=== PATIENT | female | born 1990 | race Caucasian/White ===

== ENCOUNTER 2018-02-04 12:57 | Outpatient (CLI) | payer OTHER, SELFPAY ==
--- NOTE | 2018-02-04 14:02 | DI.RAD_ITS ---
SYMPTOM/DIAGNOSIS: CHEST PRESSURE, R07.89, H/O HODGKINS DISEASE PA AND LATERAL CHEST: There is a right subclavian indwelling catheter. The tip of this lies in the SVC just above the right atrium. Heart is not enlarged. Lungs are clear and well expanded. No pleural effusion is seen. CONCLUSION: No evidence of acute disease.
== END 2018-02-04 13:17 ==
PROVIDERS: PCP Nurse Practitioner Family; Visit Provider Internal Medicine
DX: R07.89 Other chest pain (principal); Z85.71 Personal history of Hodgkin lymphoma
CPT/HCPCS: 71046

== ENCOUNTER 2019-05-09 15:14 | Emergency (ER) | payer SELFPAY ==
[2019-05-09 15:18] VITALS: BP 113/68; PULSE 61; RESP 16; TEMP 36.5; O2SAT 100
--- NOTE | 2019-05-09 16:01 | ED.GENADUL_ITS ---
Discharge Plan Disposition Patient Disposition: HOME Discharge Details Chief Complaint: RashLesion Clinical Impression: Rash Primary Care Provider: Rosa,[facility] ED Provider: Sylvester Xavier Home Meds and New Rx's Prescriptions: New doxycycline hyclate 100 mg tablet 100 mg PO BID Qty: 14 RF: 0 Continued multivitamin [Daily Multiple] 1 EACH tablet 1 ea PO DAILY RF: 0 Discharge Instructions Instructions: Cellulitis (ED) Additional Instructions: Please remove bellybutton ring. Take antibiotic as prescribed. Be sure to take the full course. Is recommended to take this antibiotic with food. Please contact your primary care physician to arrange follow-up. Return to the ER for any worsening or new concerning symptoms. Discharge Data Discharge Date/Time-TO BE ENTERED AT DEPARTURE: 05/09/19 16:15 Medical Decision Making 29-year-old female with history of non-Hodgkin's lymphoma, now in remission, here with irritation of her umbilicus. Very subtle erythema noted with out drainage. No fluctuance or induration noted. Afebrile. Consider infectious etiology and early bacterial soft tissue infection. I will cover with doxycycline. More likely contact dermatitis. I recommended she remove her bellybutton ring indefinitely. Usual and customary discharge instructions were provided. HPI General Mode of arrival: ambulatory . Date/Time Provider Initiated Documentation: 05/09/19 15:20 . Limitations to Documentation: no limitations . Information obtained by: patient . HPI Narrative: 29-year-old female presents with chief complaint of itchy bellybutton. Patient notes that over the past 2 to 3 days bellybutton has been itchy. Symptoms are mild to moderate. No modifiers. No associated erythema. No drainage from the umbilicus. Related Data Home Medications Medication Instructions Recorded Confirmed multivitamin [Daily Multiple] 1 ea PO DAILY 09/07/16 05/09/19 doxycycline hyclate 100 mg PO BID #14 tab 05/09/19 Previous Rx's Medication Instructions Recorded doxycycline hyclate 100 mg PO BID #14 tab 05/09/19 Allergies Allergy/AdvReac Type Severity Reaction Status Date / Time cephalexin monohydrate AdvReac Intermediate Vomitting Verified 05/09/19 15:20 [From Keflex] General Stated Complaint: RashLesion MINESH: 3 Review of Systems Constitutional Constitutional: Denies fever(s) Gastrointestinal Gastrointestinal: Denies abdominal pain Integumentary/Breasts Skin/Breast: Reports as per [facility] Medical History Chlamydia infection (Resolved) Contraception (Acute) headaches (Resolved) Hodgkin lymphoma (Chronic) Family History Mother No problems noted. Grandmother Diabetes Personal history of malignant neoplasm Grandmother Diabetes Social History Smoking/Tobacco Use Status: Never Alcohol Intake: current Alcohol Intake frequency: a few times a month Drug use: Never Substance use type: does not use Seatbelt use: always Do you feel safe at home: Yes Do you feel safe in your relationship?: Yes Female Reproductive History Menstrual control method: pills History History 1 Para Hx # Term Pregnancies Multiple births Hx # Pregnancies Ectopic pregnancies AB induced Hx Number of Living Children AB spontaneous Exam Const General: cooperative and no acute distress Resp Auscultation: clear to auscultation bilaterally, no rales, no rhonchi and no wheezes Cardio Jugular venous pressure: no JVD Rate: regular rate and not tachycardic Rhythm: regular rhythm GI Palpation: soft, not firm, no guarding, no masses, not rigid and nontender Skin Lesions: no lesions Other: Umbilicus with no discharge, very subtle erythema which I suspect is secondary to scratching, no fluctuance or induration Course Vital Signs Vital signs: Vital Signs Temperature 36.5 C 05/09/19 15:18 Pulse 61 05/09/19 15:18 Respiratory Rate 16 05/09/19 15:18 Blood Pressure 113/68 05/09/19 15:18 Pulse Oximetry 100 05/09/19 15:18 Temperature 36.5 C 05/09/19 15:18 Temperature Source Temporal Artery Scan 05/09/19 15:18 Pulse 61 05/09/19 15:18 Respiratory Rate 16 05/09/19 15:18 Respiratory Effort Non-Labored 05/09/19 15:22 Blood Pressure 113/68 05/09/19 15:18 Blood Pressure Position Sitting 05/09/19 15:18 Pulse Oximetry 100 05/09/19 15:18 Oxygen Delivery Method Room Air 05/09/19 15:18 Oxygen Flow Rate 0 05/09/19 15:18 Pain Level 8 05/09/19 15:18
[2019-05-09] MEDS: Doxycycline Hyclate 100 MG CAP PO (16:12)
== END 2019-05-09 16:15 | disposition home or self-care (01) ==
PROVIDERS: Emergency Provider Student in an Organized Health Care Education/Training Program
DX: R21 Rash and other nonspecific skin eruption (principal)
CPT/HCPCS: 99283

== ENCOUNTER 2019-08-07 14:22 | Outpatient (REF) | payer BC, SELFPAY ==
--- NOTE | 2019-08-07 13:20 | PAPFT_PTH ---
PATIENT: Oliva Be LOC: [facility] U#:[id number] AGE/SX: 29/F ROOM: RE08/07/[address]: CLAIRE Storey : 1990 BED: DIS: 08/07/2019 SPEC #: [id number] RECD: 08/07/19 15:51 STATUS: ADITHYA REAlma #: [id number] IVELISSE: 08/07/19 13:[address]: Gayle Barrera DEPT: [facility] Cytology RECD BY: Annalise Valentin ENTERED: 08/07/19 15:51 SP TYPE: PAPFT [place] DR: Rosa Galvin Tissues: 1 - CX/ENDOCX FOR PAP SMEARS Procedures: PAP THIN PREP/[facility] Screening Comments: [id number]
== END 2019-08-07 14:42 ==
LOC: LBN 14:22
PROVIDERS: Visit Provider Nurse Practitioner Family
DX: Z12.4 Encounter for screening for malignant neoplasm of cervix (principal)
CPT/HCPCS: 88142

== ENCOUNTER 2020-12-03 02:50 | Outpatient (CLI) | payer OTHER, SELFPAY ==
[2020-12-03 16:21] LABS: Abs Immature Grans 0.02 10^3/uL (0.0-0.06); Absolute Basophil Count 0.03 10^3/uL (0.0-0.2); Absolute Eosinophil Count 0.19 10^3/uL (0.0-0.7); Absolute Lymphocyte Count 1.61 10^3/uL (1.2-3.4); Absolute Monocyte Count 0.46 10^3/uL (0.1-0.8); Absolute Neutrophil Count 4.48 10^3/uL (1.2-6.7); Basophils % 0.4; Eosinophils % 2.8; HCT 39.9 % (36.0-46.0); HGB 13.3 g/dL (11.2-15.7); Immature Grans % 0.3; Lymphocytes % 23.7; MCH 29.6 pg (27.0-33.0); MCHC 33.3 % (32.0-36.0); MCV 88.7 fL (80-95); MPV 9.4 fL (8.0-11.0); Monocytes % 6.8; Nucleated RBC 0 %; Platelet Count 286 10^3/uL (130-400); RDW-SD 39.4 fL; WBC 6.79 10^3/uL (4.4-10.8)
[2020-12-03 17:27] LABS: Iron 55 ug/dL (50-170); Total Iron Binding Capacity 281 ug/dL (250-450); Transferrin Sat 20 % (15-50)
[2020-12-03 17:41] LABS: ALT 23 U/L (14-59); AST 12 U/L (15-37); Albumin 4.5 g/dL (3.4-5.0); Alkaline Phosphatase 66 U/L (46-116); Anion Gap 11.3 mmol/L (3-11); BUN 21 mg/dL (7-18); Bilirubin, Total 0.3 mg/dL (0.2-1.0); CO2 25.7 mmol/L (21.0-32.0); CREATININE 1.1 mg/dL (0.55-1.02); Chloride 106 mmol/L (98-107); Estimated GFR 58.32 (mL/min/1.73m2); Ferritin 55 ng/mL (8-252); Folate 19.2 ng/mL (8.6-20.0); Glucose 89 mg/dL (74-106); Potassium 4.1 mmol/L (3.5-5.1); Sodium 143 mmol/L (136-145); Vitamin B12 860 pg/mL (193-986)
[2020-12-03 18:04] LABS: FREE T4 0.78 ng/dL (0.76-1.46)
[2020-12-05 16:21] LABS: CRP, High Sensitivity 2.88 mg/L (See Note)
[2020-12-05 16:37] LABS: T3,Free 2.9 pg/mL (2.8-5.3)
[2020-12-06 02:42] LABS: Vitamin D 25 Total 35.4 ng/mL (30-100)
[2020-12-06 09:18] LABS: Thyroperoxidase Antibody <28 U/mL (<=60)
[2020-12-07 21:21] LABS: Zinc, Serum 0.75 mcg/mL (0.66-1.10)
[2020-12-08 20:45] LABS: Free Retinol (Vitamin A) 46.5 mcg/dL (32.5-78.0)
== END 2020-12-03 02:51 | disposition home or self-care (01) ==
LOC: LBO 02:50
PROVIDERS: Visit Provider Naturopath
DX: E55.9 Vitamin D deficiency, unspecified (principal); L60.2 Onychogryphosis; C81.92 Hodgkin lymphoma, unspecified, intrathoracic lymph nodes; R53.83 Other fatigue
CPT/HCPCS: 36415; 80053; 82306; 86141; 82607; 82728; 82746; 83540; 83550; 84439; 84443; 84481; 84590; 84630; 85025; 86376

== ENCOUNTER 2020-12-07 11:27 | Outpatient (REF) | payer OTHER, SELFPAY ==
--- NOTE | 2020-12-07 11:15 | PAPFT_PTH ---
PATIENT: Oliva Be LOC: [facility] U#:[id number] AGE/SX: 30/F ROOM: RE12/07/[address]: CLAIRE Storey : 1990 BED: DIS: 12/07/2020 SPEC #: [id number] RECD: 12/07/20 12:55 STATUS: ADITHYA REAlma #: [id number] IVELISSE: 12/07/20 11:[address]: Gayle Barrera DEPT: [facility] Cytology RECD BY: Annalise Valentin ENTERED: 12/07/20 12:55 SP TYPE: PAPFT [place] DR: Unknown,Unknown Tissues: 1 - CX/ENDOCX FOR PAP SMEARS Procedures: PAP THIN PREP/[facility] Screening HPV DNA PROBE Comments: [id number]
--- OUTSIDE RECORDS SUMMARY | 2020-12-07 11:33 | XMS_ITS ---
:1990 External Reference #:[id number] Author Care Team Providers Name Role Phone Carole Primary Care Provider Unavailable Allergies Code Code System Name Reaction Severity Status Onset [id number] RxNorm Keflex Diarrhea Moderate to Active ? Severe ? ? ? Vomiting Moderate to Active ? Severe Medications Name Status Start Date Stop Date ? ? gabapentin Active 04/24/2018 Not available Sprintec (28) 0.25 mg-35 mcg tablet Active 06/23/2015 Not available 1 tablet every day by oral route. sulfamethoxazole 800 mg-trimethoprim 160 mg tablet Active ? Not available TAKE 1 TABLET BY MOUTH TWICE DAILY Problems Name Status Onset Date Source ? 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 Nodes Procedures Date Name Performed by ? ? Colonoscopy Information not avai lable Results Lab Results None recorded. Past Encounters 11/30/2020 Vitamin D Deficiency; On Examination - N ails Brittle; Hodgkin's Disease of Intrathoracic Lymph Nodes; Fatigue Esmer Lam, [place]: [address] [place] [address], Ph. [phone] Social History Tobacco Smoking Status Never Smoker Vaccine List Vaccine Type DT (pediatric) 02/16/1991 Hep A, pediatric, unspecified formulatio n 02/16/1991 Hep B, adolescent/high risk infant 1990 HPV, unspecified formulation 10/17/2004 Plan of Care Patient Instructions 1. buffered C caps- 2. Zinc a.g. 1 tab/day [facility] Rem[facility] Provider Appointments None recorded. ? ? Lab None recorded. ? ? Referral None recorded. ? ? Procedures None recorded. ? ? Surgeries None recorded. ? ? Imaging None recorded. ? ? Vitals 11/30/2020 09:15AM ESTABLISHED PATIENT 45 Height Weight BMI Blood Pressure 5 ft 9 in 143 lbs 21.1 kg/m2 102/60 mm[Hg] 07/23/2018 12:15PM NEW PATIENT 89 Height Weight BMI 5 ft 10.5 in 153 lbs 16 oz 21.8 kg/m2
== END 2020-12-07 11:28 | disposition home or self-care (01) ==
LOC: LBN 11:27
PROVIDERS: Visit Provider Nurse Practitioner Family
DX: Z12.4 Encounter for screening for malignant neoplasm of cervix (principal); Z11.51 Encounter for screening for human papillomavirus (HPV)
CPT/HCPCS: 88142; 87624

== ENCOUNTER 2021-08-23 18:02 | Outpatient (REF) | payer OTHER, SELFPAY ==
[2021-08-24 15:04] LABS: Chlamydia Result Negative (Negative); GC Result Negative (Negative)
== END 2021-08-23 18:03 | disposition home or self-care (01) ==
LOC: LBN 18:02
PROVIDERS: PCP Nurse Practitioner Family; Visit Provider Nurse Practitioner Family
DX: R30.0 Dysuria (principal); Z11.3 Encounter for screening for infections with a predominantly sexual mode of transmission
CPT/HCPCS: 87491; 87591; 87086

== ENCOUNTER 2022-01-27 01:30 | Outpatient (CLI) | payer OTHER, SELFPAY ==
[2022-01-27 15:24] LABS: HCG Quant, Pregnancy 149 mIU/mL (1-3)
== END 2022-01-27 01:31 | disposition home or self-care (01) ==
LOC: LBO 01:30
PROVIDERS: Obstetrics & Gynecology Gynecology; PCP Nurse Practitioner Family; Visit Provider Nurse Practitioner Family
DX: O03.9 Complete or unspecified spontaneous abortion without complication (principal)
CPT/HCPCS: 36415; 84702

== ENCOUNTER 2022-05-24 10:20 | Outpatient (REF) | payer OTHER, SELFPAY ==
[2022-05-25 12:47] LABS: Chlamydia Result Negative (Negative); GC Result Negative (Negative)
== END 2022-05-24 10:21 | disposition home or self-care (01) ==
LOC: LBN 10:20
PROVIDERS: PCP Nurse Practitioner Family; Visit Provider Nurse Practitioner Women's Health
DX: Z11.3 Encounter for screening for infections with a predominantly sexual mode of transmission (principal)
CPT/HCPCS: 87491; 87591

== ENCOUNTER 2022-05-26 02:48 | Outpatient (CLI) | payer OTHER, SELFPAY ==
[2022-05-29 09:41] LABS: HIV-1/2 Ag & Ab Screen Negative (Negative)
[2022-05-29 09:56] LABS: Hepatitis C Ab w Rflx HCV PCR Negative (Negative)
[2022-05-30 19:17] LABS: Syphilis IgG w/Reflex Nonreactive (Nonreactive)
== END 2022-05-26 02:49 | disposition home or self-care (01) ==
LOC: LBO 02:49
PROVIDERS: PCP Nurse Practitioner Family; Visit Provider Nurse Practitioner Women's Health
DX: Z11.3 Encounter for screening for infections with a predominantly sexual mode of transmission (principal)
CPT/HCPCS: 36415; 86803; 87389; 86780

== ENCOUNTER 2022-07-24 15:43 | Outpatient (REF) | payer OTHER, SELFPAY ==
[2022-07-26 13:48] LABS: Chlamydia Result Negative (Negative); GC Result Negative (Negative)
== END 2022-07-24 15:44 | disposition home or self-care (01) ==
LOC: LBN 15:43
PROVIDERS: Visit Provider Nurse Practitioner Women's Health
DX: Z11.3 Encounter for screening for infections with a predominantly sexual mode of transmission (principal)
CPT/HCPCS: 87491; 87591

== ENCOUNTER → 2022-11-16 00:17 | Outpatient (CLI) | payer OTHER, SELFPAY ==
--- NOTE | 2022-11-16 | DI.MRI_ITS ---
Exam(s) MR LUMBAR SPINE WO EXAM: MR LUMBAR SPINE WO CLINICAL HISTORY: LUMBAR BACK PAIN M54.50. TECHNIQUE: Multiplanar multisequence MRI of the Lumbar spine was performed. COMPARISON: CT ABD/PELVIS WO W CONTRAST from 06/12/2016 FINDINGS: Bones: The last intervertebral disc space is designated the L5/S1 level for the numbering purpose of this examination. The vertebral body heights are well maintained. Alignment is satisfactory. Degene rative endplate signal changes are seen at L5-S1. Cord: The conus tip ends at the L1 level. It is of normal size and signal intensity. T12-L1: No disc herniations or bulges are present. No central spinal canal or neural foraminal stenos is. L1-2: No disc herniations or bulges are present. No central spinal canal or neural foraminal stenosis . L2-3: No disc herniations or bulges are present. No central spinal canal or neural foraminal stenosis . L3-4: No disc herniations or bulges are present. No central spinal canal or neural foraminal stenosis . L4-5: No disc herniations or bulges are present. No central spinal canal or neural foraminal stenosis . L5-S1: There is a tiny central disc herniation. No central spinal canal or neural foraminal stenosis . Soft tissues: The visualized SI joints and sacrum are well maintained. The paraspinal soft tissues ar e unremarkable. IMPRESSION: Degenerative changes at L5-S1 with a tiny central disc herniation. No significant central spinal can al or neural foraminal stenosis is seen in the lumbar spine. DATA REPOSITORY:
== END ==
PROVIDERS: Visit Provider Nurse Practitioner Primary Care
DX: M51.06 Intervertebral disc disorders with myelopathy, lumbar region (principal)
CPT/HCPCS: 72148